=== PATIENT | female | born 2000 | race Caucasian/White ===

== ENCOUNTER 2024-07-26 17:01 | Emergency (ER) | payer OTHER, SELFPAY ==
[2024-07-26 17:14] VITALS: BP 110/68
--- NOTE | 2024-07-26 18:24 | ED.GENMED ---
History of Present Illness
General
Chief Complaint: Headache
Source: patient
Exam Limitations: none
Time Seen by Provider: 07/26/24 18:12
Nursing documentation reviewed up to this point in time: agreed with
History of Present Illness
History of Present Illness:
Patient to ED with complaint of headache. Symptoms started 2 weeks ago. Pain is constant. Taking excedrin and Imitrex without improvement. Reports nausea. No vomiting. PMH daily headaches. Was seen in the past by neurology, imitrex ordered at
that time. SHe states she has not had headaches for many years. This headache feels different. Denies fever/chills, recent illness. No history of trauma. Reports telehealth appt on Friday. Advised to come to ED for MRI.
Past History
Past History
ED Past Medical History: Other (PMH daily headache. Has not had headaches for many years.)
Review of Systems
Review of Systems
Allergies reviewed?: Yes
All Other Systems: ROS reviewed and negative except as documented in HPI and ROS
Constitutional: Reports no symptoms
EENT: Reports no symptoms
Respiratory: Reports no symptoms
Cardiac: Reports no symptoms
ABD/GI: Reports nausea
: Reports no symptoms
Musculoskeletal: Reports no symptoms
Skin: Reports no symptoms
Neurological: Reports headache
Psychiatric: Reports no symptoms
Phy Exam
General Physical Exam
General Presentation: well appearing and no apparent distress
General age: appears stated age
General Skin: warm and dry
General Habitus: normal
General Mental: alert
General Hydration: appears well hydrated
ENT Exam
ENT Exam: EOMI, TM's normal and normocephalic
Eye Exam
Eye Exam: PERRL, EOMI and conjunctiva normal
Mental
Mental Status: oriented to person, oriented to place, oriented to time and usual mental status
Describe Speech: normal speech
Cranial
Cranial Nerves: normal
EOM (CN3/4/6): intact
Motor
Seizure Activity: none
Gait: normal
Tremors: none
Other Movement Disorders: none
Right upper extremity: 4
Right lower extremity: 4
Left upper extremity: 4
Left lower extremity: 4
Bilateral upper extremities: 4
Bilateral lower extremities: 4
Sensory
Sensory Exam: intact
Cerebellar
Cerebellar Function: normal finger to nose, normal heel to newton and normal Romberg test
Musculoskeletal Exam
Musculoskeletal Exam: full ROM
Skin Exam
Skin Exam: normal color, warm/dry and no rash
Psychiatric Exam
Psychiatric Exam: normal mood/affect
Course
Orders/Labs/Results
Orders:
Orders
07/26/24 18:22
Test Result ONCE
07/26/24 18:23
CT Head W/o Iv Contrast Urgent
Comment:
Reason For Exam: pain
07/26/24 18:30
COVID-19 Antigen Urgent
Source: Nasal Swab
Complete Blood Count/With Diff Urgent
Comprehensive Metabolic Panel Urgent
HCG, Serum Qualitative Screen Urgent
Influenza A+B Rapid Molecular Urgent
DANIELLE Source: Nasal Swab
Specimen Description:
07/26/24 20:16
0.9% Sodium Chloride 1000 ml [Nss] 1,000 ml IV BOLUS
Diphenhydramine [Benadryl] 12.5 mg IV NOW STA
Ketorolac [Toradol] 30 mg IV NOW STA
Prochlorperazine [Compazine] 10 mg IV NOW STA
Abnormal Lab Results
07/26/24
18:30
MPV 11.5 H fL
(7.4-10.4)
Absolute Monos (auto) 0.8 H 10^3/uL
(0.1-0.6)
Monocytes % 9.6 H %
(1.7-9.3)
07/26/24 18:30
07/26/24 18:30
Vital Signs
Initial and Last Documented VS:
Initial Vital Signs
Temp Pulse Resp BP Pulse Ox
97.9 F 93 16 110/68 99
07/26/24 17:14 07/26/24 17:14 07/26/24 17:14 07/26/24 17:14 07/26/24 17:14
Last Documented Vital Signs
Temp Pulse Resp BP Pulse Ox
97.9 F 93 16 110/68 99
07/26/24 17:14 07/26/24 17:14 07/26/24 17:14 07/26/24 17:14 07/26/24 17:14
*Radiology
Radiology exam reviewed: radiology read reviewed
*Critical Care Note
Total Time (30-74mins, 75-104mins- exclusive of procedures): Not Applicable
Update Note
Update Note:
Improved with migraine cocktail. Labs, CT report reviewed. No findings to explain her pain. WIll discharge home, given short rx for toradol. Recommend f/u with neurology. Given instructions on s/s to return to ED and she is agreeable to plan.
ED Attending Note
-
Portions of this chart may have been created with voice recognition software.� Occasional wrong word or��sound alike� substitutions may have occurred due to the inherent limitations of voice recognition software.
Discharge Plan
Departure
Patient Disposition: Home (Routine Discharge)
Date of Disposition: 07/26/24
Time of Disposition: 21:46
Patient with high blood pressure during this ER visit?: No
Condition: Good
Covid-19: Not Applicable
Discharge Problem:
Headache
Instructions: Headache, Adult (DC)
Prescriptions:
New
ketorolac 10 mg tablet
10 mg PO Q8H PRN (Reason: Pain) Qty: 12 0RF
Rx Instructions:
maximum total duration of 5 days from all oral, intranasal, or parenteral formulations
Referrals:
[facility] [Outside] (Physician referral line)
Jose Griffin MD [Active] - Call in 1-3 days for appt
NONE,* [Family Provider] -
Stand Alone Forms: Return to Work
Activity Restrictions/Additional Instructions:
Return to the emergency department immediately for any changes in/worsening of your symptoms
Interventions
Interventions:
*Risk Screen - Suicide Last Done: 07/26/24 17:17
*General Assessment Last Done: 07/26/24 17:17
*Neglect/Abuse Screening Last Done: 07/26/24 17:17
*ED COVID-19 Vaccine History Last Done: 07/26/24 18:21
ED- Neurological Assessment Last Done: 07/26/24 18:21
Discharge Date and Time
Print Language: SAL[place]
[2024-07-26 18:42] LABS: % Basophils 0.5 % (0-2); % Eosinophils 0.6 % (0-6); % Immature Granulocytes 0.2 % (0-0.5); % Lymphocytes 21.6 % (20.5-51.1); % Monocytes 9.6 % (1.7-9.3); % Neutrophils 67.5 % (42.2-75.2); Absolute Eosinophils 0.1 10^3/uL (0-0.7); Absolute Lymphocytes 1.8 10^3/uL (1.2-3.4); Absolute Monocytes 0.8 10^3/uL (0.1-0.6); Absolute Neutrophils 5.6 10^3/uL (1.4-6.5); Hemoglobin 13.3 g/dL (12.0-16.0); Mean Corp Hgb Conc. 33.3 g/dL (33.0-37.0); Mean Corpuscular Hgb 29.1 pg (27.0-31.0); Mean Corpuscular Volume 87.5 fL (81.0-99.0); Mean Platelet Volume 11.5 fL (7.4-10.4); Nucleated Red Blood Cells % 0 %; Platelet Count 234 10^3/uL (130-400); Red Blood Cell Count 4.57 10^6/uL (4.20-5.40); Red Cell Dist. Width 12.8 % (11.5-14.5); White Blood Cell Count 8.3 10^3/uL (4.8-10.8)
[2024-07-26 18:52] LABS: HCG, Serum Qualitative Screen Negative
[2024-07-26 18:55] LABS: ALT (SGPT) 16 U/L (0-35); AST (SGOT) 25 U/L (14-36); Albumin 4.6 g/dl (3.5-5.0); Alkaline Phosphatase 72 U/L (38-126); Blood Urea Nitrogen 13 mg/dl (7-17); Calcium 9.3 mg/dl (8.4-10.2); Carbon Dioxide 27 mmol/L (22-30); Chloride 104 mmol/L (98-107); Glucose 73 mg/dl (70-99); Sodium 138 mmol/L (135-145); Total Bilirubin 0.6 mg/dl (0.2-1.3); Total Protein 6.9 g/dl (6.3-8.2); eGFR > 60.00
[2024-07-26 19:02] LABS: COVID-19 Antigen Negative (Negative)
[2024-07-26] MEDS: NSS 1000 IV (20:29)
[2024-07-26] MEDS: BENADRYL 12.5 MG IV (20:30)
[2024-07-26] MEDS: TORADOL 30 MG IV (20:30)
[2024-07-26] MEDS: COMPAZINE 10 MG IV (20:31)
== END 2024-07-26 22:27 | disposition home or self-care (01) ==
LOC: EMR 17:01
PROVIDERS: Nurse Practitioner; EMERGENCY PHYSICIAN Emergency Medicine
DX: R51.9 Headache, unspecified (principal); R11.0 Nausea
CPT/HCPCS: 96374; 96375; 96361; 99284; 70450; 80053; 84703; 85025; 87502; 87811

== ENCOUNTER 2025-02-11 06:26 | Day surgery (SDC) | payer OTHER, SELFPAY | END 2025-02-11 13:22 | disposition home or self-care (01) | LOC: GI 06:26 | PROVIDERS: ATTENDING PHYSICIAN Internal Medicine Gastroenterology | DX: R19.4 Change in bowel habit (principal); Q43.8 Other specified congenital malformations of intestine; K29.70 Gastritis, unspecified, without bleeding; R68.81 Early satiety; R11.0 Nausea; K31.89 Other diseases of stomach and duodenum | CPT/HCPCS: 45380; 43239; 88305; 88342 ==